=== PATIENT | male | born 1965 | race Caucasian/White ===

== ENCOUNTER 2017-05-05 16:52 | Inpatient (IN) | payer MEDICAID ==
[~2017-05-05] VITALS: Ht 190.5 cm; Wt 79.4 kg
[2017-05-05 17:11] VITALS: BP 147/82
[2017-05-05] MEDS ORDERED: Ampicillin/Sulbactam Sod 3 GM in NS 110 ML IVPB ONE (17:15)
[2017-05-05] MEDS ORDERED: Vancomycin 1.5gm/D5W 250ml 250 ML IVPB ONE (17:15)
[2017-05-05] MEDS ORDERED: TIVICAY50 MG ORAL (17:39)
[2017-05-05] MEDS ORDERED: DESCOVY 200-251 EACH PO (17:39)
[2017-05-05] MEDS ORDERED: Unasyn 3gm Inj ONE (17:41)
[2017-05-05 17:52] LABS: BASOPHILS % (AUTO) 0.4 % (0.0-2.0); EOSINOPHILS % (AUTO) 2.8 % (0.0-3.0); HEMATOCRIT 35.8 % (42.0-52.0); HEMOGLOBIN 12.1 G/DL (14.2-18.0); LYMPHOCYTES % (AUTO) 17.7 % (20.0-45.0); MEAN CORPUSCULAR VOLUME 89 FL (80-99); MONOCYTES % (AUTO) 7.6 % (1.0-10.0); NEUTROPHILS % (AUTO) 71.6 % (45.0-75.0); PLATELET COUNT 204 K/UL (150-450); RED BLOOD COUNT 4.03 M/UL (4.70-6.10); RED CELL DISTRIBUTION WIDTH 13.1 % (11.6-14.8); WHITE BLOOD COUNT 7.6 K/UL (4.8-10.8)
[2017-05-05 18:04] LABS: ANION GAP 4 mmol/L (5-15); BLOOD UREA NITROGEN 12 mg/dL (7-18); CALCIUM 8.6 MG/DL (8.5-10.1); CARBON DIOXIDE 29 MMOL/L (21-32); CHLORIDE 102 MMOL/L (98-107); CREATININE 0.9 MG/DL (0.55-1.30); POTASSIUM 4.1 MMOL/L (3.5-5.1); SODIUM 135 MMOL/L (136-145)
[2017-05-05 18:20] LABS: ALANINE AMINOTRANSFERASE 24 U/L (12-78); ALBUMIN 2.8 G/DL (3.4-5.0); ALBUMIN/GLOBULIN RATIO 0.7 (1.0-2.7); ALKALINE PHOSPHATASE 90 U/L (46-116); ASPARTATE AMINO TRANSFERASE 15 U/L (15-37); BILIRUBIN,TOTAL 0.5 MG/DL (0.2-1.0)
--- NOTE | 2017-05-05 19:09 | Emergency Room Report ---
History of Present Illness General Chief Complaint: Upper Extremity Injury Source: Patient Present Illness HPI 51-year-old male presents ED for evaluation. Patient notes pain and swelling to his right hand times one week. States he noticed 2 small bumps on his right hand did not seek medical attention. States it is progressively worse and more swollen. Pain is throbbing, 9/10, nonradiating. Denies fevers chills. Patient has history of HIV but states he is compliant with his medications. States his viral that is undetectable. No other aggravating relieving factors. Denies any other associated symptoms Allergies: Coded Allergies: ACETAMINOPHEN (Verified Allergy, Unknown, 05/05/17) Patient History Past Medical History: none Past Surgical History: none Pertinent Family History: none Social History: Denies: smoking, alcohol use, drug use Immunizations: UTD Reviewed Nursing Documentation: PMH: Agreed, PSxH: Agreed Review of Systems All Other Systems: negative except mentioned in HPI Physical Exam Vital Signs Date Time Temp Pulse Resp B/P (MAP) Pulse Ox O2 Delivery O2 Flow Rate FiO2 05/05/17 16:58 98.2 103 18 147/82 99 Room Air 98.2 Sp02 EP Interpretation: reviewed, normal General Appearance: no apparent distress, alert, GCS 15, non-toxic Head: normocephalic Eyes: bilateral eye normal inspection, bilateral eye PERRL ENT: normal ENT inspection Neck: normal inspection Respiratory: normal inspection Cardiovascular #1: normal inspection Gastrointestinal: normal inspection Rectal: deferred Genitourinary: no CVA tenderness Musculoskeletal: swelling - R hand Neurologic: alert, oriented x3, responsive, motor strength/tone normal, sensory intact, speech normal Psychiatric: judgement/insight normal, memory normal, mood/affect normal, no suicidal/homicidal ideation Skin: other - swelling/erythema to R hand Lymphatic: normal inspection Medical Decision Making Diagnostic Impression: Primary Impression: Cellulitis of right hand ER Course Hospital Course 51-year-old male presents to ED with redness, swelling R hand Differential diagnoses include: Cellulitis, abscess, rash. Clinical course Patient placed on stretcher. After initial history and physical I ordered labs , blood Cx, UA, IVFs There is no evidence of fluctuation. I do not believe incision and drainage is possible at this time labs reviewed - no leukocytosis, Hb/Hct stable, no electrolyte abnormalities. lactate ok broad spectrum antibiotics given. Case discussed with Dr Sesay and he agreed to accept the patient to his service for further care and support Diagnosis - cellulitis of R hand Patient admitted to floor in serious condition Labs Test 05/05/17 17:20 White Blood Count 7.6 K/UL (4.8-10.8) Red Blood Count 4.03 M/UL (4.70-6.10) Hemoglobin 12.1 G/DL (14.2-18.0) Hematocrit 35.8 % (42.0-52.0) Mean Corpuscular Volume 89 FL (80-99) Mean Corpuscular Hemoglobin 30.0 PG (27.0-31.0) Mean Corpuscular Hemoglobin Concent 33.8 G/DL (32.0-36.0) Red Cell Distribution Width 13.1 % (11.6-14.8) Platelet Count 204 K/UL (150-450) Mean Platelet Volume 6.0 FL (6.5-10.1) Neutrophils (%) (Auto) 71.6 % (45.0-75.0) Lymphocytes (%) (Auto) 17.7 % (20.0-45.0) Monocytes (%) (Auto) 7.6 % (1.0-10.0) Eosinophils (%) (Auto) 2.8 % (0.0-3.0) Basophils (%) (Auto) 0.4 % (0.0-2.0) Sodium Level 135 MMOL/L (136-145) Potassium Level 4.1 MMOL/L (3.5-5.1) Chloride Level 102 MMOL/L (98-107) Carbon Dioxide Level 29 MMOL/L (21-32) Anion Gap 4 mmol/L (5-15) Blood Urea Nitrogen 12 mg/dL (7-18) Creatinine 0.9 MG/DL (0.55-1.30) Estimat Glomerular Filtration Rate > 60 mL/min (>60) Glucose Level 95 MG/DL (74-106) Lactic Acid Level 0.70 mmol/L (0.66-2.22) Calcium Level 8.6 MG/DL (8.5-10.1) Total Bilirubin 0.5 MG/DL (0.2-1.0) Aspartate Amino Transf (AST/SGOT) 15 U/L (15-37) Alanine Aminotransferase (ALT/SGPT) 24 U/L (12-78) Alkaline Phosphatase 90 U/L (46-116) Creatine Kinase MB 2.0 NG/ML (0.0-3.6) Total Protein 6.6 G/DL (6.4-8.2) Albumin 2.8 G/DL (3.4-5.0) Globulin 3.8 g/dL Albumin/Globulin Ratio 0.7 (1.0-2.7) Last Vital Signs Date Time Temp Pulse Resp B/P (MAP) Pulse Ox O2 Delivery O2 Flow Rate FiO2 05/05/17 17:11 98.2 79 18 147/82 99 Room Air 98.2 Status: improved Disposition: ADMITTED INPATIENT Condition: Serious Referrals: [facility],REFERRING (PCP) VENTURA VILLA M.D. May 05, 2017 19:08
[2017-05-05 19:22] VITALS: BP 141/78
[2017-05-05] MEDS ORDERED: Albuterol/Ipratropium 3ml neb HHN PRN (19:45)
[2017-05-05] MEDS ORDERED: Morphine Sulfate 4mg/ml Inj IVP PRN (19:45)
[2017-05-05] MEDS ORDERED: Miralax 17gm pkt ORAL PRN (19:45)
[2017-05-05] MEDS ORDERED: Nitroglycerin Subl 0.4mg tab SL PRN (19:45)
[2017-05-05 21:22] VITALS: BP 128/74
[2017-05-05] MEDS: Cefepime HCl 2 GM in D5W 110 ML IV SCH (23:21)
[2017-05-05] MEDS: Heparin 5000 units/ml inj SUBQ SCH (23:25)
[2017-05-06] VITALS: BP 145/73
[2017-05-06] MEDS: Vancomycin 1 GM in D5W 275 ML IVPB SCH ×3 (02:01→17:43)
[2017-05-06 04:00] VITALS: BP 131/80
[2017-05-06 07:00] LABS: BASOPHILS % (AUTO) 0.8 % (0.0-2.0); EOSINOPHILS % (AUTO) 2.2 % (0.0-3.0); HEMATOCRIT 35.8 % (42.0-52.0); HEMOGLOBIN 12.4 G/DL (14.2-18.0); LYMPHOCYTES % (AUTO) 16.6 % (20.0-45.0); MEAN CORPUSCULAR VOLUME 89 FL (80-99); MONOCYTES % (AUTO) 7.3 % (1.0-10.0); NEUTROPHILS % (AUTO) 73.1 % (45.0-75.0); PLATELET COUNT 219 K/UL (150-450); RED BLOOD COUNT 4.02 M/UL (4.70-6.10); RED CELL DISTRIBUTION WIDTH 12.9 % (11.6-14.8); WHITE BLOOD COUNT 8.4 K/UL (4.8-10.8)
[2017-05-06 08:00] VITALS: BP 123/74
[2017-05-06 08:27] LABS: ALANINE AMINOTRANSFERASE 23 U/L (12-78); ANION GAP 9 mmol/L (5-15); ASPARTATE AMINO TRANSFERASE 17 U/L (15-37); BILIRUBIN,TOTAL 0.5 MG/DL (0.2-1.0); BLOOD UREA NITROGEN 7 mg/dL (7-18); CALCIUM 8.7 MG/DL (8.5-10.1); CARBON DIOXIDE 25 MMOL/L (21-32); CHLORIDE 102 MMOL/L (98-107); POTASSIUM 3.9 MMOL/L (3.5-5.1); SODIUM 136 MMOL/L (136-145)
[2017-05-06 08:28] LABS: ALBUMIN 2.9 G/DL (3.4-5.0); ALBUMIN/GLOBULIN RATIO 0.7 (1.0-2.7); ALKALINE PHOSPHATASE 92 U/L (46-116)
[2017-05-06] MEDS ORDERED: Dolutegravir Sodium 50mg tab ORAL SCH ×2 (09:00)
[2017-05-06] MEDS: Heparin 5000 units/ml inj SUBQ SCH ×2 (10:00→20:12)
[2017-05-06] MEDS: Cefepime HCl 2 GM in D5W 110 ML IV SCH (11:31)
[2017-05-06 12:00] VITALS: BP 135/87
--- NOTE | 2017-05-06 12:41 | Consultation ---
Consult Note Consult Note ID DIC # [id number] DEBBIE JOHNSTON M.D. May 06, 2017 12:41
--- NOTE | 2017-05-06 15:33 | History and Physical ---
History of Present Illness General Date patient seen: May 06, 2017 Reason for Hospitalization: Upper Extremity Injury Present Illness HPI 51-year-old male present to ED for evaluation of pain and swelling to his right hand times one week. States he noticed 2 small bumps on his right hand did not seek medical attention. States it is progressively worse and more swollen. Pain is throbbing, 9/10, nonradiating. Denies fevers chills. Patient has history of HIV but states he is compliant with his medications. States his viral that is undetectable. No other aggravating relieving factors. Denies any other associated symptoms Allergies: Coded Allergies: ACETAMINOPHEN (Verified Allergy, Unknown, 05/06/17) States nausea and other effects Medication History Scheduled Dolutegravir Sodium (Tivicay), 50 MG ORAL DAILY, (Reported) Miscellaneous Medications Emtricitabine/Tenofov Alafenam (Descovy 200-25 mg Tablet), 1 EACH PO, (Reported) Patient History Healthcare decision maker N Resuscitation status Full Code Advanced Directive on File Past Medical/Surgical History Past Medical/Surgical History: (1) HIV disease Review of Systems All Other Systems: negative except mentioned in HPI Physical Exam General Appearance: WD/WN Lines, tubes and drains: peripheral HEENT: normocephalic Neck: non-tender, normal inspection Respiratory/Chest: chest wall non-tender, lungs clear Breasts: no masses Cardiovascular/Chest: normal peripheral pulses, no JVD Abdomen: soft Genitourinary/Rectal: normal genital exam Extremities: normal range of motion Skin Exam: rash Last 24 Hour Vital Signs Date Time Temp Pulse Resp B/P (MAP) Pulse Ox O2 Delivery O2 Flow Rate FiO2 05/06/17 12:30 97.2 05/06/17 12:00 97.2 83 18 135/87 100 05/06/17 11:31 96.3 05/06/17 08:00 96.3 78 18 123/74 98 05/06/17 07:52 78 16 Room Air 05/06/17 04:00 Room Air 05/06/17 04:00 99.5 98 20 131/80 97 05/06/17 00:00 99.1 96 18 145/73 99 05/06/17 00:00 Room Air 05/05/17 22:00 Room Air 05/05/17 21:50 98.2 71 18 128/71 99 Room Air 98.2 05/05/17 21:22 98.2 71 15 128/74 99 Room Air 98.2 05/05/17 19:30 75 16 Room Air 05/05/17 19:22 98.2 75 16 141/78 99 Room Air 98.2 05/05/17 17:11 98.2 79 18 147/82 99 Room Air 98.2 05/05/17 16:58 98.2 103 18 147/82 99 Room Air 98.2 Intake and Output 05/05/17 05/06/17 19:00 07:00 Intake Total 1485.0 ml Balance 1485.0 ml Intake Oral 700 ml IV Total 385.0 ml Other 400 ml # Voids 1 Laboratory Tests Test 05/05/17 17:20 05/06/17 05:30 White Blood Count 7.6 K/UL (4.8-10.8) 8.4 K/UL (4.8-10.8) Red Blood Count 4.03 M/UL (4.70-6.10) L 4.02 M/UL (4.70-6.10) L Hemoglobin 12.1 G/DL (14.2-18.0) L 12.4 G/DL (14.2-18.0) L Hematocrit 35.8 % (42.0-52.0) L 35.8 % (42.0-52.0) L Mean Corpuscular Volume 89 FL (80-99) 89 FL (80-99) Mean Corpuscular Hemoglobin 30.0 PG (27.0-31.0) 30.8 PG (27.0-31.0) Mean Corpuscular Hemoglobin Concent 33.8 G/DL (32.0-36.0) 34.6 G/DL (32.0-36.0) Red Cell Distribution Width 13.1 % (11.6-14.8) 12.9 % (11.6-14.8) Platelet Count 204 K/UL (150-450) 219 K/UL (150-450) Mean Platelet Volume 6.0 FL (6.5-10.1) L 6.1 FL (6.5-10.1) L Neutrophils (%) (Auto) 71.6 % (45.0-75.0) 73.1 % (45.0-75.0) Lymphocytes (%) (Auto) 17.7 % (20.0-45.0) L 16.6 % (20.0-45.0) L Monocytes (%) (Auto) 7.6 % (1.0-10.0) 7.3 % (1.0-10.0) Eosinophils (%) (Auto) 2.8 % (0.0-3.0) 2.2 % (0.0-3.0) Basophils (%) (Auto) 0.4 % (0.0-2.0) 0.8 % (0.0-2.0) Sodium Level 135 MMOL/L (136-145) L 136 MMOL/L (136-145) Potassium Level 4.1 MMOL/L (3.5-5.1) 3.9 MMOL/L (3.5-5.1) Chloride Level 102 MMOL/L (98-107) 102 MMOL/L (98-107) Carbon Dioxide Level 29 MMOL/L (21-32) 25 MMOL/L (21-32) Anion Gap 4 mmol/L (5-15) L 9 mmol/L (5-15) Blood Urea Nitrogen 12 mg/dL (7-18) 7 mg/dL (7-18) Creatinine 0.9 MG/DL (0.55-1.30) 1.0 MG/DL (0.55-1.30) Estimat Glomerular Filtration Rate > 60 mL/min (>60) > 60 mL/min (>60) Glucose Level 95 MG/DL (74-106) 105 MG/DL (74-106) Lactic Acid Level 0.70 mmol/L (0.66-2.22) Calcium Level 8.6 MG/DL (8.5-10.1) 8.7 MG/DL (8.5-10.1) Total Bilirubin 0.5 MG/DL (0.2-1.0) 0.5 MG/DL (0.2-1.0) Aspartate Amino Transf (AST/SGOT) 15 U/L (15-37) 17 U/L (15-37) Alanine Aminotransferase (ALT/SGPT) 24 U/L (12-78) 23 U/L (12-78) Alkaline Phosphatase 90 U/L (46-116) 92 U/L (46-116) Creatine Kinase MB 2.0 NG/ML (0.0-3.6) Total Protein 6.6 G/DL (6.4-8.2) 7.1 G/DL (6.4-8.2) Albumin 2.8 G/DL (3.4-5.0) L 2.9 G/DL (3.4-5.0) L Globulin 3.8 g/dL 4.2 g/dL Albumin/Globulin Ratio 0.7 (1.0-2.7) L 0.7 (1.0-2.7) L Microbiology Date/Time Source Procedure Growth Status 05/05/17 18:00 Hand Right Gram Stain - Final Resulted 05/05/17 18:00 Wound Culture - Preliminary Staphylococcus Aureus Resulted Height (Feet): 6 Height (Inches): 3.00 Weight (Pounds): 175 Medications Current Medications Medications (Trade) Dose Ordered Sig/Deisi Route PRN Reason Start Time Stop Time Status Last Admin Dose Admin Albuterol/ Ipratropium (Albuterol/ Ipratropium) 3 ml Q4H PRN HHN Shortness of Breath 05/05/17 19:45 05/10/17 19:44 Dextrose (Dextrose 50%) STAT PRN IV Hypoglycemia 05/05/17 19:45 06/04/17 19:44 Heparin Sodium (Porcine) (Heparin 5000 units/ml) 5,000 units EVERY 12 HOURS SUBQ 05/05/17 22:00 06/04/17 21:59 05/06/17 10:00 Ibuprofen (Motrin) 600 mg Q6H PRN ORAL For Pain 05/06/17 01:15 06/05/17 01:14 05/06/17 11:31 Morphine Sulfate (Morphine Sulfate) 2 mg Q4H PRN IVP Moderate Pain (Pain Scale 4-6) 05/05/17 19:45 05/12/17 19:44 Nitroglycerin (Ntg) 0.4 mg Every 5 Minutes PRN SL Prn Chest Pain 05/05/17 19:45 06/04/17 19:44 Ondansetron HCl (Zofran) 4 mg Q6H PRN IVP Nausea & Vomiting 05/05/17 19:45 06/04/17 19:44 Patient Own Medication (Patient's Own Med) 1 ea QHS ORAL 05/06/17 21:00 06/05/17 20:59 Patient Own Medication (Patient's Own Med) 1 ea QHS ORAL 05/06/17 21:00 06/05/17 20:59 Polyethylene Glycol (Miralax) 17 gm DAILYPRN PRN ORAL Constipation 05/05/17 19:45 06/04/17 19:44 Temazepam (Restoril) 15 mg HSPRN PRN ORAL Insomnia 05/05/17 19:45 05/12/17 19:44 Vancomycin HCl (Vanco rx to dose) 1 ea DAILYPRN PRN MISC RX TO DOSE PROTOCOL 05/05/17 21:30 06/04/17 21:29 Vancomycin HCl 1 gm/Dextrose 275 ml @ 183.3 mls/ hr Q8HR@0200,1000,1800 IVPB 05/06/17 02:00 05/11/17 01:59 05/06/17 10:00 Assessment/Plan Problem List: (1) Cellulitis of right hand ICD Codes: L03.113 - Cellulitis of right upper limb SNOMED: 76772992 (2) HIV disease ICD Codes: B20 - Human immunodeficiency virus [HIV] disease SNOMED: 26626807 Assessment/Plan iv abx ID to f/u check cbc/ bmp JUAN ABARCA May 06, 2017 15:32
[2017-05-06 16:00] VITALS: BP 119/56
--- NOTE | 2017-05-06 16:47 | Consultation ---
History of Present Illness General Date patient seen: May 06, 2017 Chief Complaint: Upper Extremity Injury Reason for Consultation: right hand cellulitis Present Illness HPI 51 year old male presented to ED for evaluation of right hand pain and swelling with wound for one week. Patient noticed 2 small bumps on his right hand a week ago and did not seek medical attention. States it is progressively worseed with worsening swelling, ulceration, and edema. Pain is throbbing, 9/10 , nonradiating. Denies fevers or chills. Patient has history of HIV but states he is compliant with his medications. States his viral that is undetectable. No other aggravating relieving factors. Denies any other associated symptoms. does not recall trauma but states he was gardening a few days ago and may have had scratches from thorns. large dorsal aspect hypothenar area ulceration with drainage. surgery called to evaluate. Allergies: Coded Allergies: ACETAMINOPHEN (Verified Allergy, Unknown, 05/06/17) States nausea and other effects Medication History Scheduled Dolutegravir Sodium (Tivicay), 50 MG ORAL DAILY, (Reported) Miscellaneous Medications Emtricitabine/Tenofov Alafenam (Descovy 200-25 mg Tablet), 1 EACH PO, (Reported) Patient History History Provided By: Patient, Medical Record, PMD Healthcare decision maker N Resuscitation status Full Code Advanced Directive on File Past Medical/Surgical History Past Medical/Surgical History: (1) HIV disease (2) Cellulitis of right hand Review of Systems Constitutional: Denies: no symptoms, see HPI, chills, sweats, fever, malaise, weakness, other Eye: Denies: no symptoms, see HPI, eye pain, blurred vision, tearing, double vision, nose pain, nose congestion, acuity changes, discharge, other ENT: Denies: no symptoms, see HPI, ear pain, ear discharge, nose pain, nose congestion, throat pain, throat swelling, mouth pain, hearing loss, nasal discharge, other Respiratory: Denies: no symptoms, see HPI, cough, orthopnea, shortness of breath, stridor, wheezing, [place], sputum, other Cardiovascular: Denies: no symptoms, see HPI, chest pain, edema, palpitations, syncope, PND, other Gastrointestinal: Denies: no symptoms, see HPI, abdominal pain, constipation, diarrhea, nausea, vomiting, melena, hematemesis, other Genitourinary: Denies: no symptoms, see HPI, discharge, dysuria, frequency, hematuria, pain, retention, incontinence, urgency, vag bleed/dc, other Musculoskeletal: Denies: no symptoms, see HPI, back pain, gout, joint pain, joint swelling, muscle pain, muscle stiffness, other Skin: Reports: lesions Psychiatric: Denies: no symptoms, see HPI, prior hx, anxiety, depressed feelings, emotional problems, SI, HI, hallucinations, other Neurological: Denies: no symptoms, see HPI, headache, numbness, paresthesia, seizure, tingling, tremors, focal weakness, syncope, dizziness, other Endocrine: Denies: no symptoms, see HPI, excessive sweating, flushing, intolerance to temperature, increased thirst, increased urine, unexplained weight loss, other Hematologic/Lymphatic: Denies: no symptoms, see HPI, anemia, blood clots, easy bleeding, easy bruising, swollen glands, diathesis, other All Other Systems: negative except mentioned in HPI Physical Exam General Appearance: no apparent distress, alert Lines, tubes and drains: peripheral HEENT: normocephalic, mucous membranes moist, PERRL Neck: normal alignment, supple, normal inspection Respiratory/Chest: lungs clear, normal breath sounds, no respiratory distress, no accessory muscle use Cardiovascular/Chest: normal peripheral pulses, normal rate, regular rhythm Abdomen: normal bowel sounds, non tender, soft, no organomegaly, no mass Extremities: other - right hand dorsal aspect hypothenar area with 4cm x 5cm raised ulcerative lesion. serous drainage. minimal pus. unsure if underlying edema or abscess? tender, skin blistering Skin Exam: normal pigmentation Neurologic: alert, oriented x 3, responsive Last 24 Hour Vital Signs Date Time Temp Pulse Resp B/P (MAP) Pulse Ox O2 Delivery O2 Flow Rate FiO2 05/06/17 16:00 97.9 84 18 119/56 98 05/06/17 12:30 97.2 05/06/17 12:00 97.2 83 18 135/87 100 05/06/17 11:31 96.3 05/06/17 08:00 96.3 78 18 123/74 98 05/06/17 07:52 78 16 Room Air 05/06/17 04:00 Room Air 05/06/17 04:00 99.5 98 20 131/80 97 05/06/17 00:00 99.1 96 18 145/73 99 05/06/17 00:00 Room Air 05/05/17 22:00 Room Air 05/05/17 21:50 98.2 71 18 128/71 99 Room Air 98.2 05/05/17 21:22 98.2 71 15 128/74 99 Room Air 98.2 05/05/17 19:30 75 16 Room Air 05/05/17 19:22 98.2 75 16 141/78 99 Room Air 98.2 05/05/17 17:11 98.2 79 18 147/82 99 Room Air 98.2 05/05/17 16:58 98.2 103 18 147/82 99 Room Air 98.2 Intake and Output 05/05/17 05/06/17 19:00 07:00 Intake Total 1485.0 ml Balance 1485.0 ml Intake Oral 700 ml IV Total 385.0 ml Other 400 ml # Voids 1 Laboratory Tests Test 05/05/17 17:20 05/06/17 05:30 White Blood Count 7.6 K/UL (4.8-10.8) 8.4 K/UL (4.8-10.8) Red Blood Count 4.03 M/UL (4.70-6.10) L 4.02 M/UL (4.70-6.10) L Hemoglobin 12.1 G/DL (14.2-18.0) L 12.4 G/DL (14.2-18.0) L Hematocrit 35.8 % (42.0-52.0) L 35.8 % (42.0-52.0) L Mean Corpuscular Volume 89 FL (80-99) 89 FL (80-99) Mean Corpuscular Hemoglobin 30.0 PG (27.0-31.0) 30.8 PG (27.0-31.0) Mean Corpuscular Hemoglobin Concent 33.8 G/DL (32.0-36.0) 34.6 G/DL (32.0-36.0) Red Cell Distribution Width 13.1 % (11.6-14.8) 12.9 % (11.6-14.8) Platelet Count 204 K/UL (150-450) 219 K/UL (150-450) Mean Platelet Volume 6.0 FL (6.5-10.1) L 6.1 FL (6.5-10.1) L Neutrophils (%) (Auto) 71.6 % (45.0-75.0) 73.1 % (45.0-75.0) Lymphocytes (%) (Auto) 17.7 % (20.0-45.0) L 16.6 % (20.0-45.0) L Monocytes (%) (Auto) 7.6 % (1.0-10.0) 7.3 % (1.0-10.0) Eosinophils (%) (Auto) 2.8 % (0.0-3.0) 2.2 % (0.0-3.0) Basophils (%) (Auto) 0.4 % (0.0-2.0) 0.8 % (0.0-2.0) Sodium Level 135 MMOL/L (136-145) L 136 MMOL/L (136-145) Potassium Level 4.1 MMOL/L (3.5-5.1) 3.9 MMOL/L (3.5-5.1) Chloride Level 102 MMOL/L (98-107) 102 MMOL/L (98-107) Carbon Dioxide Level 29 MMOL/L (21-32) 25 MMOL/L (21-32) Anion Gap 4 mmol/L (5-15) L 9 mmol/L (5-15) Blood Urea Nitrogen 12 mg/dL (7-18) 7 mg/dL (7-18) Creatinine 0.9 MG/DL (0.55-1.30) 1.0 MG/DL (0.55-1.30) Estimat Glomerular Filtration Rate > 60 mL/min (>60) > 60 mL/min (>60) Glucose Level 95 MG/DL (74-106) 105 MG/DL (74-106) Lactic Acid Level 0.70 mmol/L (0.66-2.22) Calcium Level 8.6 MG/DL (8.5-10.1) 8.7 MG/DL (8.5-10.1) Total Bilirubin 0.5 MG/DL (0.2-1.0) 0.5 MG/DL (0.2-1.0) Aspartate Amino Transf (AST/SGOT) 15 U/L (15-37) 17 U/L (15-37) Alanine Aminotransferase (ALT/SGPT) 24 U/L (12-78) 23 U/L (12-78) Alkaline Phosphatase 90 U/L (46-116) 92 U/L (46-116) Creatine Kinase MB 2.0 NG/ML (0.0-3.6) Total Protein 6.6 G/DL (6.4-8.2) 7.1 G/DL (6.4-8.2) Albumin 2.8 G/DL (3.4-5.0) L 2.9 G/DL (3.4-5.0) L Globulin 3.8 g/dL 4.2 g/dL Albumin/Globulin Ratio 0.7 (1.0-2.7) L 0.7 (1.0-2.7) L Microbiology Date/Time Source Procedure Growth Status 05/05/17 18:00 Hand Right Gram Stain - Final Resulted 05/05/17 18:00 Wound Culture - Preliminary Staphylococcus Aureus Resulted Height (Feet): 6 Height (Inches): 3.00 Weight (Pounds): 175 Medications Current Medications Medications (Trade) Dose Ordered Sig/Deisi Route PRN Reason Start Time Stop Time Status Last Admin Dose Admin Albuterol/ Ipratropium (Albuterol/ Ipratropium) 3 ml Q4H PRN HHN Shortness of Breath 05/05/17 19:45 05/10/17 19:44 Dextrose (Dextrose 50%) STAT PRN IV Hypoglycemia 05/05/17 19:45 06/04/17 19:44 Heparin Sodium (Porcine) (Heparin 5000 units/ml) 5,000 units EVERY 12 HOURS SUBQ 05/05/17 22:00 06/04/17 21:59 05/06/17 10:00 Ibuprofen (Motrin) 600 mg Q6H PRN ORAL For Pain 05/06/17 01:15 06/05/17 01:14 05/06/17 11:31 Morphine Sulfate (Morphine Sulfate) 2 mg Q4H PRN IVP Moderate Pain (Pain Scale 4-6) 05/05/17 19:45 05/12/17 19:44 Nitroglycerin (Ntg) 0.4 mg Every 5 Minutes PRN SL Prn Chest Pain 05/05/17 19:45 06/04/17 19:44 Ondansetron HCl (Zofran) 4 mg Q6H PRN IVP Nausea & Vomiting 05/05/17 19:45 06/04/17 19:44 Patient Own Medication (Patient's Own Med) 1 ea QHS ORAL 05/06/17 21:00 06/05/17 20:59 Patient Own Medication (Patient's Own Med) 1 ea QHS ORAL 05/06/17 21:00 06/05/17 20:59 Polyethylene Glycol (Miralax) 17 gm DAILYPRN PRN ORAL Constipation 05/05/17 19:45 06/04/17 19:44 Temazepam (Restoril) 15 mg HSPRN PRN ORAL Insomnia 05/05/17 19:45 05/12/17 19:44 Vancomycin HCl (Vanco rx to dose) 1 ea DAILYPRN PRN MISC RX TO DOSE PROTOCOL 05/05/17 21:30 06/04/17 21:29 Vancomycin HCl 1 gm/Dextrose 275 ml @ 183.3 mls/ hr Q8HR@0200,1000,1800 IVPB 05/06/17 02:00 05/11/17 01:59 05/06/17 10:00 Assessment/Plan Problem List: (1) Cellulitis of right hand Assessment & Plan: interesting ulcerated lesion. unsure if possible that it has only been present for a few days given looks of wound. lots of debris and slothing overlying epidermis and some dermis noted. serous oozing but no active pus noted. hand cellulitis. good inflow. bedside debridement of tissue loss performed to viable tissue. wound cleaned and dressings applied. if not improved by tomorrow may need surgical debridement or even biopsy of wound. thank you for this consult will follow with recs NPO p MN in case of surgical procedure tomorrow IV Abx keep arm elevated. ICD Codes: L03.113 - Cellulitis of right upper limb SNOMED: [id number] Status: stable Howard Faith May 06, 2017 16:47
--- NOTE | 2017-05-06 16:58 | Diagnostic Imaging Report ---
Indication: Swelling of the right hand. Cellulitis. Concern for osteomyelitis Technique: MRI examination of the right hand was performed in a 1.5 Lia magnet. Sequences obtained include multiplanar T1 and T2 fast spin echo, and STIR. Comparison: none Findings: Bone marrow signal is normal. The marker is noted. There is diffuse fairly extensive subcutaneous edema and thickening of the skin involving the hand especially in the dorsum of the hand. The area of clinical concern is on the ulnar side of the and closer to the fourth and fifth metacarpals. There is no obvious abscess although the study was not obtained with intravenous contrast material. The extensor tendons deep to the area of cellulitis appear unremarkable. There is no joint effusion. Mild periarticular cyst noted in the head of the second metacarpal probably degenerative in nature. IMPRESSION: No evidence of acute osteomyelitis. Extensive subcutaneous edema consistent with given history of cellulitis. No obvious abscess.
[2017-05-06 20:00] VITALS: BP 137/72
[2017-05-06] MEDS: DOLUTEGRAVIR 50 MG ORAL SCH (20:11)
[2017-05-06] MEDS: DESCOVY ORAL SCH (20:11)
--- NOTE | 2017-05-06 20:30 | Consultation ---
DATE OF CONSULTATION: 05/06/2017 INFECTIOUS DISEASE CONSULTATION CONSULTING PHYSICIAN: Arjun Quiroz M.D. REQUESTING PHYSICIAN: Cony Sesay M.D. REASON FOR CONSULTATION: Evaluation of the patient for right hand cellulitis and abscess. HISTORY OF PRESENT ILLNESS: The patient is a 51-year-old male with past medical history significant for HIV, diagnosed 30 years ago, on his HIV regimen, well-controlled who came to the hospital with swelling and tenderness of right hand. The patient was found to have right abscess. The patient's cultures were sent and the patient has been started on IV antibiotics. Infectious Disease consultation has been requested for further evaluation of the patient's antibiotic management. The patient does not know what precipitated the event. He denies any IV drug abuse currently or any trauma to the area. PAST MEDICAL HISTORY: Significant for HIV, CD4 count has been in the range of 700, viral load undetectable (as per the patient). MEDICATIONS: Medication at home, the patient is getting Tivicay and Descovy and taking his home medications here. The patient has been started on IV vancomycin and cefepime also. ALLERGIES: Acetaminophen. SOCIAL HISTORY: Significant for IV drug abuse in the past. FAMILY HISTORY: Not contributing. REVIEW OF SYSTEMS: HEENT: No recent change in vision or hearing. PULMONARY: No cough. No shortness of breath. CARDIOVASCULAR: No chest pain. No palpitations. GASTROINTESTINAL/ABDOMEN: No nausea or vomiting. GENITOURINARY: No dysuria. MUSCULOSKELETAL: As mentioned above, the patient has right hand abscess that started above 10 days ago and after the patient's manipulation, this has started to get worse. NEUROLOGIC: No seizure. PHYSICAL EXAMINATION: VITAL SIGNS: Temperature 96 degrees, blood pressure 133/74, pulse 78, and respiratory rate 18. HEENT: No pale conjunctivae. No icterus. NECK: No lymphadenopathy. CHEST: Clear. HEART: S1 and S2. ABDOMEN: Soft. Nontender. EXTREMITIES: The patient has a right hand abscess with purulent discharge. NEUROLOGIC: Awake and alert. LABORATORY AND DIAGNOSTIC DATA: WBC 8, hemoglobin 12, and platelets 220. BUN 7 and creatinine 1. ALT, AST, and alkaline phosphatase unremarkable. Wound culture is growing Staphylococcus aureus, susceptibility pending. ASSESSMENT: The patient is a 51-year-old male with, 1. Human immunodeficiency virus, controlled on his human immunodeficiency virus treatment. 2. Right hand abscess (rule out osteo, however, this has low probability). 3. Rule out bacteremia. PLAN: 1. We will continue the patient on vancomycin and discontinue cefepime. 2. Monitor CBC. 3. Monitor BMP. 4. Monitor cultures (blood, wound). 5. Continue the patient on his HIV medication (Tivicay and Descovy). 6. Recommend Surgical consult for incision and drainage of the abscess. 7. MRI of the hand to rule out osteomyelitis. Thank you, Dr. Sesay, for allowing me to participate in the care of this patient. I will follow the patient with you during this hospitalization. Arjun Quiroz M.D. DR: RAFFAELE JOB#: [id number] CC:
[2017-05-07] VITALS: BP 125/74
[2017-05-07] MEDS: Vancomycin 1250mg/D5W 250ml IVPB SCH ×3 (02:12→17:12)
[2017-05-07 03:59] VITALS: BP 130/76
[2017-05-07 08:18] VITALS: BP 133/79
--- NOTE | 2017-05-07 08:18 | Pulmonology Progress Note ---
Assessment/Plan Assessment/Plan ASSESSMENT R hand cellulitis with MRSA HIV status s/p bedside debridement PLAN OF CARE MS floor IV abx ID follows wound cx + MRSA Resume ART therapy surgery follows s/p debridement MRI R hand - no evidence of acute OM wound care elevate R hand if no improvement in 1 day, will need surg debridement and biopsy of the wound - per surgeon Venous Duplex BLE negative case discussed and evaluated by supervising physician Subjective Allergies: Coded Allergies: ACETAMINOPHEN (Verified Allergy, Unknown, 05/06/17) States nausea and other effects Subjective afebrile, awaiting for possible surgery made NPO by surgeon + pain 10/30 R hand Objective Last 24 Hour Vital Signs Date Time Temp Pulse Resp B/P (MAP) Pulse Ox O2 Delivery O2 Flow Rate FiO2 05/07/17 03:59 98.1 82 18 130/76 99 05/07/17 00:00 98.1 83 18 125/74 99 05/06/17 20:00 98.4 85 18 137/72 99 05/06/17 18:44 82 18 Room Air 05/06/17 16:00 97.9 84 18 119/56 98 05/06/17 12:30 97.2 05/06/17 12:00 97.2 83 18 135/87 100 05/06/17 11:31 96.3 Intake and Output 05/06/17 05/07/17 19:00 07:00 Intake Total 956.6 ml 360 ml Balance 956.6 ml 360 ml Intake Oral 480 ml 360 ml IV Total 476.6 ml # Voids 3 General Appearance: no acute distress HEENT: normocephalic, atraumatic, anicteric Respiratory/Chest: lungs clear, no respiratory distress Cardiovascular: normal rate, no JVD Abdomen: normal bowel sounds, soft, non tender, non distended Extremities: pedal pulses normal, other - R hand with dressing C/D/I, + edema, tenderness on palpation , able to perform all ROM Neurologic/Psychiatric: alert, oriented x 3, responsive Musculoskeletal: normal muscle bulk Microbiology Date/Time Source Procedure Growth Status 05/05/17 17:30 Blood Blood Culture - Preliminary NO GROWTH AFTER 24 HOURS Resulted 05/05/17 17:20 Blood Blood Culture - Preliminary NO GROWTH AFTER 24 HOURS Resulted 05/05/17 18:00 Hand Right Gram Stain - Final Resulted 05/05/17 18:00 Wound Culture - Preliminary Staphylococcus Aureus Resulted Laboratory Tests 05/06/17 17:00: Vancomycin Level Trough 10.2 Current Medications Medications (Trade) Dose Ordered Sig/Deisi Route PRN Reason Start Time Stop Time Status Last Admin Dose Admin Albuterol/ Ipratropium (Albuterol/ Ipratropium) 3 ml Q4H PRN HHN Shortness of Breath 05/05/17 19:45 05/10/17 19:44 Dextrose (Dextrose 50%) STAT PRN IV Hypoglycemia 05/05/17 19:45 06/04/17 19:44 Heparin Sodium (Porcine) (Heparin 5000 units/ml) 5,000 units EVERY 12 HOURS SUBQ 05/05/17 22:00 06/04/17 21:59 05/06/17 20:12 Ibuprofen (Motrin) 600 mg Q6H PRN ORAL For Pain 05/06/17 01:15 06/05/17 01:14 05/06/17 20:11 Morphine Sulfate (Morphine Sulfate) 2 mg Q4H PRN IVP Moderate Pain (Pain Scale 4-6) 05/05/17 19:45 05/12/17 19:44 Nitroglycerin (Ntg) 0.4 mg Every 5 Minutes PRN SL Prn Chest Pain 05/05/17 19:45 06/04/17 19:44 Ondansetron HCl (Zofran) 4 mg Q6H PRN IVP Nausea & Vomiting 05/05/17 19:45 06/04/17 19:44 Patient Own Medication (Patient's Own Med) 1 ea QHS ORAL 05/06/17 21:00 06/05/17 20:59 05/06/17 20:11 Patient Own Medication (Patient's Own Med) 1 ea QHS ORAL 05/06/17 21:00 06/05/17 20:59 05/06/17 20:11 Polyethylene Glycol (Miralax) 17 gm DAILYPRN PRN ORAL Constipation 05/05/17 19:45 06/04/17 19:44 Temazepam (Restoril) 15 mg HSPRN PRN ORAL Insomnia 05/05/17 19:45 05/12/17 19:44 Vancomycin HCl (Vanco rx to dose) 1 ea DAILYPRN PRN MISC RX TO DOSE PROTOCOL 05/05/17 21:30 06/04/17 21:29 Vancomycin HCl/ Dextrose 250 ml @ 166.667 mls/hr Q8H IVPB 05/07/17 02:00 05/12/17 23:59 05/07/17 02:12 Guzman ArthurElsy chris NP May 07, 2017 08:18
[2017-05-07] MEDS: Heparin 5000 units/ml inj SUBQ SCH ×2 (09:06→21:00)
--- NOTE | 2017-05-07 14:13 | Operative Note - PDOC ---
Operative Note Operative Note Date of Operation/Procedure: May 07, 2017 Pre-op Diagnosis: right hand dorsal aspect abscess Procedure: incision and drainage of right hand abscess Post-op Diagnosis: same as pre-op Surgeon: linda Anesthesia: local Specimen: yes Complications: none Condition: stable Estimated Blood Loss: minimal Drains: none Implant(s) used?: No Indications for Procedure 51M presented with right hand swelling and ulceration for the past few days. does not recall when or how it began but remembers first noticing needing to seek medical attention 3-4 days ago. was gardening a week ago and may have injured it but does not recall. right hand dorsal aspect with area of erythema , edema, skin blistering and ulceration. IV Abx improving but formed abscess cavity underlying tissues noted on exam today. I&D recommended and indicated. risks, benefits, and alternatives discussed with patient. consent obtained. Description of Procedure patient made comfortable at bedside. right hand cleaned. 1%lido with epi infiltrated in right hand overlying abscess cavity in proposed skin incision site. incision made over area of fluctuance. 2-3cm incision made and formed cruciate incision for drainage. 5+cc pus and necrotic fibrinous tissue evacuated. wound cavity deep and tracking. wound irrigated with sterile saline until clean. packing and dressings applied. patient tolerated well. packing and dressings BID. will follow wound until healed. cont abx. keep elevated. Howard Faith May 07, 2017 14:13
--- NOTE | 2017-05-07 17:00 | Infectious Diseases Prog Note ---
Assessment/Plan Assessment/Plan ASSESSMENT: The patient is a 51-year-old male with, #. Right hand abscess 2ry to MRSA infection (?injury while gardening) -MRI Hand: No evidence of acute osteomyelitis. Extensive subcutaneous edema consistent with given history of cellulitis. No obvious abscess. -Bcx NTD -s/p I+D R hand abscess 05/07- 5cc pus and necrotic fibrinous tissue evacuated; wound cx p -wound cx 05/05 MRSA ( S vanco MICHAEL 1, bactrim, linezolid, tetracycline) #. Human immunodeficiency virus, controlled on his human immunodeficiency virus treatment. -CD4 count has been in the range of 700, viral load undetectable (as per the patient). PLAN: 1. We will continue the patient on vancomycin #05/30-. upon discharge will transition to PO Bactrim or Doxycycline -05/06 SP Cefepime #2 -05/05 SP Unasyn x1 2. Monitor CBC. 3. Monitor BMP. 4. Monitor cultures (blood, wound). 5. Continue the patient on his HIV medication (Tivicay and Descovy). 6. Gen Sx f/u Thank you, Dr. Sesay, for allowing me to participate in the care of this patient. I will follow the patient with you during this hospitalization. Subjective Allergies: Coded Allergies: ACETAMINOPHEN (Verified Allergy, Unknown, 05/06/17) States nausea and other effects Objective Vital Signs Last 24 Hour Vital Signs Date Time Temp Pulse Resp B/P (MAP) Pulse Ox O2 Delivery O2 Flow Rate FiO2 05/07/17 15:46 97.7 05/07/17 14:47 97.7 05/07/17 11:49 97.7 05/07/17 11:37 78 18 Room Air 05/07/17 10:50 97.7 05/07/17 08:18 97.7 73 20 133/79 98 05/07/17 03:59 98.1 82 18 130/76 99 05/07/17 00:00 98.1 83 18 125/74 99 05/06/17 20:00 98.4 85 18 137/72 99 2/14/18 18:44 82 18 Room Air Height (Feet): 6 Height (Inches): 3.00 Weight (Pounds): 175 Objective HEENT: No pale conjunctivae. No icterus. NECK: No lymphadenopathy. CHEST: Clear. HEART: S1 and S2. ABDOMEN: Soft. Nontender. EXTREMITIES: The patient has a right hand abscess with purulent discharge. NEUROLOGIC: Awake and alert. Microbiology Date/Time Source Procedure Growth Status 05/05/17 17:30 Blood Blood Culture - Preliminary NO GROWTH AFTER 24 HOURS Resulted 05/05/17 17:20 Blood Blood Culture - Preliminary NO GROWTH AFTER 24 HOURS Resulted 05/06/17 06:00 Nasal Nares Left MRSA Culture - Preliminary Resulted 05/05/17 18:00 Hand Right Gram Stain - Final Resulted 05/05/17 18:00 Wound Culture - Preliminary Staphylococcus Aureus - Mrsa Resulted Laboratory Tests Test 05/06/17 17:00 Vancomycin Level Trough 10.2 ug/mL (5.0-12.0) Current Medications Medications (Trade) Dose Ordered Sig/Deisi Route PRN Reason Start Time Stop Time Status Last Admin Dose Admin Albuterol/ Ipratropium (Albuterol/ Ipratropium) 3 ml Q4H PRN HHN Shortness of Breath 05/05/17 19:45 05/10/17 19:44 Dextrose (Dextrose 50%) STAT PRN IV Hypoglycemia 05/05/17 19:45 06/04/17 19:44 Heparin Sodium (Porcine) (Heparin 5000 units/ml) 5,000 units EVERY 12 HOURS SUBQ 05/05/17 22:00 06/04/17 21:59 05/07/17 09:06 Ibuprofen (Motrin) 600 mg Q6H PRN ORAL For Pain 05/06/17 01:15 06/05/17 01:14 05/07/17 10:50 Morphine Sulfate (Morphine Sulfate) 2 mg Q4H PRN IVP Moderate Pain (Pain Scale 4-6) 05/05/17 19:45 05/12/17 19:44 Nitroglycerin (Ntg) 0.4 mg Every 5 Minutes PRN SL Prn Chest Pain 05/05/17 19:45 06/04/17 19:44 Ondansetron HCl (Zofran) 4 mg Q6H PRN IVP Nausea & Vomiting 05/05/17 19:45 06/04/17 19:44 Patient Own Medication (Patient's Own Med) 1 ea QHS ORAL 05/06/17 21:00 06/05/17 20:59 05/06/17 20:11 Patient Own Medication (Patient's Own Med) 1 ea QHS ORAL 05/06/17 21:00 06/05/17 20:59 05/06/17 20:11 Polyethylene Glycol (Miralax) 17 gm DAILYPRN PRN ORAL Constipation 05/05/17 19:45 06/04/17 19:44 Temazepam (Restoril) 15 mg HSPRN PRN ORAL Insomnia 05/05/17 19:45 05/12/17 19:44 Vancomycin HCl (Vanco rx to dose) 1 ea DAILYPRN PRN MISC RX TO DOSE PROTOCOL 05/05/17 21:30 06/04/17 21:29 Vancomycin HCl/ Dextrose 250 ml @ 166.667 mls/hr Q8H IVPB 05/07/17 02:00 05/12/17 23:59 05/07/17 09:07 Arabella Preston M.D. May 07, 2017 17:00
[2017-05-07] MEDS ORDERED: NS 500ML ONE (17:47)
[2017-05-07] MEDS ORDERED: Tubing IV Secondary IV ONE (17:47)
[2017-05-07] MEDS: DESCOVY ORAL SCH (20:54)
[2017-05-07] MEDS: DOLUTEGRAVIR 50 MG ORAL SCH (20:54)
[2017-05-08] MEDS: Vancomycin 1250mg/D5W 250ml IVPB SCH ×3 (02:22→19:17)
[2017-05-08 03:56] VITALS: BP 127/80
--- NOTE | 2017-05-08 07:58 | Pulmonology Progress Note ---
Assessment/Plan Assessment/Plan ASSESSMENT R hand cellulitis with MRSA HIV status s/p bedside debridement s/p surgical I &D R hand abscess 05/07 PLAN OF CARE MS floor IV abx ID follows wound cx + MRSA, bloodc x -prel negative Resume ART therapy surgery follows s/p debridement MRI R hand - no evidence of acute OM wound care elevate R hand if no improvement in 1 day, will need surg debridement and biopsy of the wound - per surgeon Venous Duplex BLE negative case discussed and evaluated by supervising physician Subjective Allergies: Coded Allergies: ACETAMINOPHEN (Verified Allergy, Unknown, 05/06/17) States nausea and other effects Subjective afebrile, s/p surgery 05/07 I&D R hand abscess Objective Last 24 Hour Vital Signs Date Time Temp Pulse Resp B/P (MAP) Pulse Ox O2 Delivery O2 Flow Rate FiO2 05/08/17 05:04 97.0 05/08/17 04:05 97.0 05/08/17 03:56 97.0 99 18 127/80 96 05/07/17 20:54 97.7 05/07/17 19:30 80 18 Room Air 21 05/07/17 15:46 97.7 05/07/17 14:47 97.7 05/07/17 11:37 78 18 Room Air 05/07/17 10:50 97.7 05/07/17 08:18 97.7 73 20 133/79 98 Intake and Output 05/07/17 05/08/17 19:00 07:00 Intake Total 610 ml 250.000 ml Balance 610 ml 250.000 ml Intake Oral 360 ml IV Total 250 ml 250.000 ml # Voids 2 Objective General Appearance: no acute distress HEENT: normocephalic, atraumatic, anicteric Respiratory/Chest: lungs clear, no respiratory distress Cardiovascular: normal rate, no JVD Abdomen: normal bowel sounds, soft, non tender, non distended Extremities: pedal pulses normal, other - R hand with dressing C/D/I, + edema, tenderness on palpation , able to perform all ROM Neurologic/Psychiatric: alert, oriented x 3, responsive Musculoskeletal: normal muscle bulk Microbiology Date/Time Source Procedure Growth Status 05/05/17 17:30 Blood Blood Culture - Preliminary NO GROWTH AFTER 48 HOURS Resulted 05/05/17 17:20 Blood Blood Culture - Preliminary NO GROWTH AFTER 48 HOURS Resulted 05/06/17 06:00 Nasal Nares Left MRSA Culture - Preliminary Resulted 05/05/17 18:00 Hand Right Gram Stain - Final Resulted 05/05/17 18:00 Wound Culture - Preliminary Staphylococcus Aureus - Mrsa Resulted Current Medications Medications (Trade) Dose Ordered Sig/Deisi Route PRN Reason Start Time Stop Time Status Last Admin Dose Admin Albuterol/ Ipratropium (Albuterol/ Ipratropium) 3 ml Q4H PRN HHN Shortness of Breath 05/05/17 19:45 05/10/17 19:44 Dextrose (Dextrose 50%) STAT PRN IV Hypoglycemia 05/05/17 19:45 06/04/17 19:44 Heparin Sodium (Porcine) (Heparin 5000 units/ml) 5,000 units EVERY 12 HOURS SUBQ 05/05/17 22:00 06/04/17 21:59 05/07/17 21:00 Ibuprofen (Motrin) 600 mg Q6H PRN ORAL For Pain 05/06/17 01:15 06/05/17 01:14 05/08/17 04:05 Morphine Sulfate (Morphine Sulfate) 2 mg Q4H PRN IVP Moderate Pain (Pain Scale 4-6) 05/05/17 19:45 05/12/17 19:44 Nitroglycerin (Ntg) 0.4 mg Every 5 Minutes PRN SL Prn Chest Pain 05/05/17 19:45 06/04/17 19:44 Ondansetron HCl (Zofran) 4 mg Q6H PRN IVP Nausea & Vomiting 05/05/17 19:45 06/04/17 19:44 Patient Own Medication (Patient's Own Med) 1 ea QHS ORAL 05/06/17 21:00 06/05/17 20:59 05/07/17 20:54 Patient Own Medication (Patient's Own Med) 1 ea QHS ORAL 05/06/17 21:00 06/05/17 20:59 05/07/17 20:54 Polyethylene Glycol (Miralax) 17 gm DAILYPRN PRN ORAL Constipation 05/05/17 19:45 06/04/17 19:44 Temazepam (Restoril) 15 mg HSPRN PRN ORAL Insomnia 05/05/17 19:45 05/12/17 19:44 Vancomycin HCl (Vanco rx to dose) 1 ea DAILYPRN PRN MISC RX TO DOSE PROTOCOL 05/05/17 21:30 06/04/17 21:29 Vancomycin HCl/ Dextrose 250 ml @ 166.667 mls/hr Q8H IVPB 05/07/17 02:00 05/12/17 23:59 05/08/17 02:22 Guzman (Genia)Elsy NP May 08, 2017 07:58
[2017-05-08 08:00] VITALS: BP 108/62
[2017-05-08] MEDS: Heparin 5000 units/ml inj SUBQ SCH ×2 (09:01→21:00)
[2017-05-08 10:28] LABS: HEMATOCRIT 37.1 % (42.0-52.0); HEMOGLOBIN 12.6 G/DL (14.2-18.0); MEAN CORPUSCULAR VOLUME 89 FL (80-99); PLATELET COUNT 251 K/UL (150-450); RED BLOOD COUNT 4.16 M/UL (4.70-6.10); RED CELL DISTRIBUTION WIDTH 12.6 % (11.6-14.8); WHITE BLOOD COUNT 3.3 K/UL (4.8-10.8)
[2017-05-08 10:43] LABS: ANION GAP 7 mmol/L (5-15); BLOOD UREA NITROGEN 10 mg/dL (7-18); CALCIUM 8.6 MG/DL (8.5-10.1); CARBON DIOXIDE 27 MMOL/L (21-32); CHLORIDE 106 MMOL/L (98-107); POTASSIUM 4.3 MMOL/L (3.5-5.1); SODIUM 140 MMOL/L (136-145)
--- NOTE | 2017-05-08 11:21 | Infectious Diseases Prog Note ---
Assessment/Plan Assessment/Plan ASSESSMENT: The patient is a 51-year-old male with, #. Right hand abscess 2ry to MRSA infection (?injury while gardening) -MRI Hand: No evidence of acute osteomyelitis. Extensive subcutaneous edema consistent with given history of cellulitis. No obvious abscess. -Bcx NTD -s/p I+D R hand abscess 05/07- 5cc pus and necrotic fibrinous tissue evacuated; wound cx p -wound cx 05/05 MRSA ( S vanco MICHAEL 1, bactrim, linezolid, tetracycline) #. Human immunodeficiency virus, controlled on his human immunodeficiency virus treatment. -CD4 count has been in the range of 700, viral load undetectable (as per the patient). PLAN: 1. We will continue the patient on vancomycin #06/30-. upon discharge will transition to PO Bactrim DS 2 tabs bid -05/06 SP Cefepime #2 -05/05 SP Unasyn x1 2. Monitor CBC. 3. Monitor BMP. 4. Monitor cultures (blood, wound). 5. Continue the patient on his HIV medication (Tivicay and Descovy). 6. Gen Sx f/u Thank you, Dr. Sesay, for allowing me to participate in the care of this patient. I will follow the patient with you during this hospitalization. Subjective Allergies: Coded Allergies: ACETAMINOPHEN (Verified Allergy, Unknown, 05/06/17) States nausea and other effects Subjective afebrile no leukocytosis Bcx N TD I+D cx pending Objective Vital Signs Last 24 Hour Vital Signs Date Time Temp Pulse Resp B/P (MAP) Pulse Ox O2 Delivery O2 Flow Rate FiO2 05/08/17 08:00 96.8 66 19 108/62 99 05/08/17 08:00 Room Air 05/08/17 07:53 67 18 Room Air 21 05/08/17 05:04 97.0 05/08/17 04:05 97.0 05/08/17 03:56 97.0 99 18 127/80 96 05/07/17 20:54 97.7 05/07/17 19:30 80 18 Room Air 21 2/15/18 15:46 97.7 05/07/17 14:47 97.7 05/07/17 11:37 78 18 Room Air Height (Feet): 6 Height (Inches): 3.00 Weight (Pounds): 175 Objective HEENT: No pale conjunctivae. No icterus. NECK: No lymphadenopathy. CHEST: Clear. HEART: S1 and S2. ABDOMEN: Soft. Nontender. EXTREMITIES: R hand with surgical dressing NEUROLOGIC: Awake and alert. Microbiology Date/Time Source Procedure Growth Status 05/05/17 17:30 Blood Blood Culture - Preliminary NO GROWTH AFTER 48 HOURS Resulted 05/05/17 17:20 Blood Blood Culture - Preliminary NO GROWTH AFTER 48 HOURS Resulted 05/06/17 06:00 Nasal Nares Left MRSA Culture - Final Staphylococcus Aureus - Mrsa Complete 05/05/17 18:00 Hand Right Gram Stain - Final Complete 05/05/17 18:00 Wound Culture - Final Staphylococcus Aureus - Mrsa Complete Laboratory Tests Test 05/08/17 09:30 White Blood Count 3.3 K/UL (4.8-10.8) L Red Blood Count 4.16 M/UL (4.70-6.10) L Hemoglobin 12.6 G/DL (14.2-18.0) L Hematocrit 37.1 % (42.0-52.0) L Mean Corpuscular Volume 89 FL (80-99) Mean Corpuscular Hemoglobin 30.2 PG (27.0-31.0) Mean Corpuscular Hemoglobin Concent 33.9 G/DL (32.0-36.0) Red Cell Distribution Width 12.6 % (11.6-14.8) Platelet Count 251 K/UL (150-450) Mean Platelet Volume 6.1 FL (6.5-10.1) L Neutrophils (%) (Auto) % (45.0-75.0) Lymphocytes (%) (Auto) % (20.0-45.0) Monocytes (%) (Auto) % (1.0-10.0) Eosinophils (%) (Auto) % (0.0-3.0) Basophils (%) (Auto) % (0.0-2.0) Differential Total Cells Counted 100 Neutrophils % (Manual) 56 % (45-75) Lymphocytes % (Manual) 29 % (20-45) Monocytes % (Manual) 11 % (1-10) H Eosinophils % (Manual) 4 % (0-3) H Basophils % (Manual) 0 % (0-2) Band Neutrophils 0 % (0-8) Platelet Estimate Adequate Platelet Morphology Normal Red Blood Cell Morphology Normal Sodium Level 140 MMOL/L (136-145) Potassium Level 4.3 MMOL/L (3.5-5.1) Chloride Level 106 MMOL/L (98-107) Carbon Dioxide Level 27 MMOL/L (21-32) Anion Gap 7 mmol/L (5-15) Blood Urea Nitrogen 10 mg/dL (7-18) Creatinine 1.0 MG/DL (0.55-1.30) Estimat Glomerular Filtration Rate > 60 mL/min (>60) Glucose Level 103 MG/DL (74-106) Calcium Level 8.6 MG/DL (8.5-10.1) Vancomycin Level Trough 15.0 ug/mL (5.0-12.0) H Current Medications Medications (Trade) Dose Ordered Sig/Deisi Route PRN Reason Start Time Stop Time Status Last Admin Dose Admin Albuterol/ Ipratropium (Albuterol/ Ipratropium) 3 ml Q4H PRN HHN Shortness of Breath 05/05/17 19:45 05/10/17 19:44 Dextrose (Dextrose 50%) STAT PRN IV Hypoglycemia 05/05/17 19:45 06/04/17 19:44 Heparin Sodium (Porcine) (Heparin 5000 units/ml) 5,000 units EVERY 12 HOURS SUBQ 05/05/17 22:00 06/04/17 21:59 05/08/17 09:01 Ibuprofen (Motrin) 600 mg Q6H PRN ORAL For Pain 05/06/17 01:15 06/05/17 01:14 05/08/17 04:05 Morphine Sulfate (Morphine Sulfate) 2 mg Q4H PRN IVP Moderate Pain (Pain Scale 4-6) 05/05/17 19:45 05/12/17 19:44 Nitroglycerin (Ntg) 0.4 mg Every 5 Minutes PRN SL Prn Chest Pain 05/05/17 19:45 06/04/17 19:44 Ondansetron HCl (Zofran) 4 mg Q6H PRN IVP Nausea & Vomiting 05/05/17 19:45 06/04/17 19:44 Patient Own Medication (Patient's Own Med) 1 ea QHS ORAL 05/06/17 21:00 06/05/17 20:59 05/07/17 20:54 Patient Own Medication (Patient's Own Med) 1 ea QHS ORAL 05/06/17 21:00 06/05/17 20:59 05/07/17 20:54 Polyethylene Glycol (Miralax) 17 gm DAILYPRN PRN ORAL Constipation 05/05/17 19:45 06/04/17 19:44 Temazepam (Restoril) 15 mg HSPRN PRN ORAL Insomnia 05/05/17 19:45 05/12/17 19:44 Vancomycin HCl (Vanco rx to dose) 1 ea DAILYPRN PRN MISC RX TO DOSE PROTOCOL 05/05/17 21:30 06/04/17 21:29 Vancomycin HCl/ Dextrose 250 ml @ 166.667 mls/hr Q8H IVPB 05/07/17 02:00 05/12/17 23:59 05/08/17 02:22 Arabella Preston M.D. May 08, 2017 11:21
[2017-05-08] MEDS ORDERED: Albuterol/Ipratropium 3ml neb HHN PRN (15:45)
[2017-05-08 15:50] VITALS: BP 134/77
--- NOTE | 2017-05-08 19:22 | General Surgery Progress Note ---
General Surgery-Progress Note Subjective Procedure Performed incision and drainage of right hand abscess Symptoms: improved Additional Comments doing okay. states hand feels better with less pressure. no n/v/f/c. noted a small lump on right groin as well. Objective Last 24 Hour Vital Signs Date Time Temp Pulse Resp B/P (MAP) Pulse Ox O2 Delivery O2 Flow Rate FiO2 05/08/17 15:50 97.0 63 19 134/77 97 05/08/17 15:50 Room Air 05/08/17 08:00 96.8 66 19 108/62 99 05/08/17 08:00 Room Air 05/08/17 07:53 67 18 Room Air 21 05/08/17 05:04 97.0 05/08/17 04:05 97.0 05/08/17 03:56 97.0 99 18 127/80 96 05/07/17 20:54 97.7 05/07/17 19:30 80 18 Room Air 21 I&O Intake and Output 05/07/17 05/08/17 19:00 07:00 Intake Total 610 ml 250.000 ml Balance 610 ml 250.000 ml Intake Oral 360 ml IV Total 250 ml 250.000 ml # Voids 2 Dressing: saturated Wound: clean Cardiovascular: RSR Respiratory: clear Abdomen: soft, flat, non-tender, present bowel sounds Extremities: other - 1cm possible folliculitus in pubic / scrotal hair region. will monitor. Laboratory Tests Test 05/08/17 09:30 White Blood Count 3.3 K/UL (4.8-10.8) L Red Blood Count 4.16 M/UL (4.70-6.10) L Hemoglobin 12.6 G/DL (14.2-18.0) L Hematocrit 37.1 % (42.0-52.0) L Mean Corpuscular Volume 89 FL (80-99) Mean Corpuscular Hemoglobin 30.2 PG (27.0-31.0) Mean Corpuscular Hemoglobin Concent 33.9 G/DL (32.0-36.0) Red Cell Distribution Width 12.6 % (11.6-14.8) Platelet Count 251 K/UL (150-450) Mean Platelet Volume 6.1 FL (6.5-10.1) L Neutrophils (%) (Auto) % (45.0-75.0) Lymphocytes (%) (Auto) % (20.0-45.0) Monocytes (%) (Auto) % (1.0-10.0) Eosinophils (%) (Auto) % (0.0-3.0) Basophils (%) (Auto) % (0.0-2.0) Differential Total Cells Counted 100 Neutrophils % (Manual) 56 % (45-75) Lymphocytes % (Manual) 29 % (20-45) Monocytes % (Manual) 11 % (1-10) H Eosinophils % (Manual) 4 % (0-3) H Basophils % (Manual) 0 % (0-2) Band Neutrophils 0 % (0-8) Platelet Estimate Adequate Platelet Morphology Normal Red Blood Cell Morphology Normal Sodium Level 140 MMOL/L (136-145) Potassium Level 4.3 MMOL/L (3.5-5.1) Chloride Level 106 MMOL/L (98-107) Carbon Dioxide Level 27 MMOL/L (21-32) Anion Gap 7 mmol/L (5-15) Blood Urea Nitrogen 10 mg/dL (7-18) Creatinine 1.0 MG/DL (0.55-1.30) Estimat Glomerular Filtration Rate > 60 mL/min (>60) Glucose Level 103 MG/DL (74-106) Calcium Level 8.6 MG/DL (8.5-10.1) Vancomycin Level Trough 15.0 ug/mL (5.0-12.0) H Plan Problems: (1) Cellulitis of right hand Assessment & Plan: interesting ulcerated lesion. unsure if possible that it has only been present for a few days given looks of wound. lots of debris and slothing overlying epidermis and some dermis noted. s/p I&D at bedside with evacuation of pus. packing and dressings removed and looks better today. no more active drainage. large wound that should heal in time. right pubic region lesion with cellulitis. if develops fluctuance will need I& D as well. -cont packing and dressings to hand wound -will monitor right groin wound -cont abx. Howard Faith May 08, 2017 19:22
[2017-05-08 20:00] VITALS: BP 143/86
[2017-05-08] MEDS: DESCOVY ORAL SCH (20:55)
[2017-05-08] MEDS: DOLUTEGRAVIR 50 MG ORAL SCH (20:56)
[2017-05-09] MEDS: Vancomycin 1250mg/D5W 250ml IVPB SCH ×2 (03:31→09:19)
[2017-05-09 08:00] VITALS: BP 134/75
[2017-05-09] MEDS: Heparin 5000 units/ml inj SUBQ SCH (09:19)
[2017-05-09] MEDS ORDERED: Lidocaine 1% 10mg/ml/Epi 0.005mg/ml 30ml vial INJ ONE (10:30)
--- NOTE | 2017-05-09 10:39 | Infectious Diseases Prog Note ---
Assessment/Plan Assessment/Plan ASSESSMENT: The patient is a 51-year-old male with, #. Right hand abscess 2ry to MRSA infection (?injury while gardening) -MRI Hand: No evidence of acute osteomyelitis. Extensive subcutaneous edema consistent with given history of cellulitis. No obvious abscess. -Bcx NTD -s/p I+D R hand abscess 05/07- 5cc pus and necrotic fibrinous tissue evacuated; wound cx p -wound cx 05/05 MRSA ( S vanco MICHAEL 1, bactrim, linezolid, tetracycline) # groin abscess #. Human immunodeficiency virus, controlled on his human immunodeficiency virus treatment. -CD4 count has been in the range of 700, viral load undetectable (as per the patient). PLAN: 1. We will continue the patient on vancomycin # -. upon discharge will transition to PO Bactrim DS 2 tabs bid -05/06 SP Cefepime #2 -05/05 SP Unasyn x1 2. Monitor CBC. 3. Monitor BMP. 4. Monitor cultures (blood, wound). 5. Continue the patient on his HIV medication (Tivicay and Descovy) 6. Gen Sx f/u , I/D of abscess Subjective Constitutional: Denies: no symptoms, fever, chills, fatigue, anorexia, drenching sweats, other Allergies: Coded Allergies: ACETAMINOPHEN (Verified Allergy, Unknown, 05/06/17) States nausea and other effects Objective Vital Signs Last 24 Hour Vital Signs Date Time Temp Pulse Resp B/P (MAP) Pulse Ox O2 Delivery O2 Flow Rate FiO2 05/09/17 08:00 97.2 69 20 134/75 99 Room Air 05/08/17 20:24 98.1 05/08/17 20:00 98.1 75 21 143/86 100 05/08/17 19:34 62 19 Room Air 21 05/08/17 15:50 97.0 63 19 134/77 97 05/08/17 15:50 Room Air Height (Feet): 6 Height (Inches): 3.00 Weight (Pounds): 175 HEENT: anicteric Respiratory/Chest: normal breath sounds Cardiovascular: regular rhythm Current Medications Medications (Trade) Dose Ordered Sig/Deisi Route PRN Reason Start Time Stop Time Status Last Admin Dose Admin Albuterol/ Ipratropium (Albuterol/ Ipratropium) 3 ml Q4H PRN HHN Shortness of Breath 05/08/17 15:45 05/13/17 15:44 Dextrose (Dextrose 50%) STAT PRN IV Hypoglycemia 05/05/17 19:45 06/04/17 19:44 Heparin Sodium (Porcine) (Heparin 5000 units/ml) 5,000 units EVERY 12 HOURS SUBQ 05/05/17 22:00 06/04/17 21:59 05/09/17 09:19 Ibuprofen (Motrin) 600 mg Q6H PRN ORAL For Pain 05/06/17 01:15 06/05/17 01:14 05/08/17 19:25 Morphine Sulfate (Morphine Sulfate) 2 mg Q4H PRN IVP Moderate Pain (Pain Scale 4-6) 05/05/17 19:45 05/12/17 19:44 Nitroglycerin (Ntg) 0.4 mg Every 5 Minutes PRN SL Prn Chest Pain 05/05/17 19:45 06/04/17 19:44 Ondansetron HCl (Zofran) 4 mg Q6H PRN IVP Nausea & Vomiting 05/05/17 19:45 06/04/17 19:44 Patient Own Medication (Patient's Own Med) 1 ea QHS ORAL 05/06/17 21:00 06/05/17 20:59 05/08/17 20:55 Patient Own Medication (Patient's Own Med) 1 ea QHS ORAL 05/06/17 21:00 06/05/17 20:59 05/08/17 20:56 Polyethylene Glycol (Miralax) 17 gm DAILYPRN PRN ORAL Constipation 05/05/17 19:45 06/04/17 19:44 Temazepam (Restoril) 15 mg HSPRN PRN ORAL Insomnia 05/05/17 19:45 05/12/17 19:44 Vancomycin HCl (Vanco rx to dose) 1 ea DAILYPRN PRN MISC RX TO DOSE PROTOCOL 05/05/17 21:30 06/04/17 21:29 Vancomycin HCl/ Dextrose 250 ml @ 166.667 mls/hr Q8H IVPB 05/07/17 02:00 05/12/17 23:59 05/09/17 09:19 DEBBIE JOHNSTON M.D. May 09, 2017 10:39
--- NOTE | 2017-05-09 10:53 | General Surgery Progress Note ---
General Surgery-Progress Note Subjective Procedure Performed incision and drainage of right hand abscess Symptoms: improved Additional Comments right hand wound much improved. swelling improved. good range of motion. no erythema and cellulitis improved. right pubic/groin wound with spontaneous drainage yesterday evening and today improved with minimal cellulitis as compared to before. Objective Last 24 Hour Vital Signs Date Time Temp Pulse Resp B/P (MAP) Pulse Ox O2 Delivery O2 Flow Rate FiO2 05/09/17 08:00 97.2 69 20 134/75 99 Room Air 05/08/17 20:24 98.1 05/08/17 20:00 98.1 75 21 143/86 100 05/08/17 19:34 62 19 Room Air 21 05/08/17 15:50 97.0 63 19 134/77 97 05/08/17 15:50 Room Air I&O Intake and Output 05/08/17 05/09/17 19:00 07:00 Intake Total 600 ml 1250.000 ml Balance 600 ml 1250.000 ml Intake Oral 600 ml 1000 ml IV Total 250.000 ml # Voids 3 2 Plan Problems: (1) Cellulitis of right hand Assessment & Plan: interesting ulcerated lesion. unsure if possible that it has only been present for a few days given looks of wound. lots of debris and slothing overlying epidermis and some dermis noted. s/p I&D at bedside with evacuation of pus. no more active drainage. large wound that should heal in time. much improved right pubic region lesion with cellulitis resolving. spontaneous drainage last night and much improved today. no more drainage. -cont packing and dressings to hand wound. patient states that he can do wound care himself and wants to go home. will teach him wound care okay to d/c from surgical standpoint with wound care. recommended SNF or care facility given wounds but patient adamantly denied and states he wants to go home (friends house) -cont abx; transition to oral Howard Faith May 09, 2017 10:53
--- NOTE | 2017-05-09 11:40 | Pulmonology Progress Note ---
Assessment/Plan Assessment/Plan ASSESSMENT R hand cellulitis with MRSA HIV status s/p bedside debridement s/p surgical I &D R hand abscess 05/07 PLAN OF CARE [facility] floor IV abx ID follows wound cx + MRSA, bloodc x -prel negative Resume ART therapy surgery follows s/p debridement MRI R hand - no evidence of acute OM wound care elevate R hand if no improvement in 1 day, will need surg debridement and biopsy of the wound - per surgeon Venous Duplex BLE negative surgeon cleared fro dc ID ok for dc on oral abx, script provided dc today case discussed and evaluated by supervising physician Subjective Allergies: Coded Allergies: ACETAMINOPHEN (Verified Allergy, Unknown, 05/06/17) States nausea and other effects Subjective afebrile, s/p surgery 05/07 I&D R hand abscess Objective Last 24 Hour Vital Signs Date Time Temp Pulse Resp B/P (MAP) Pulse Ox O2 Delivery O2 Flow Rate FiO2 05/09/17 08:00 97.2 69 20 134/75 99 Room Air 05/08/17 20:24 98.1 05/08/17 20:00 98.1 75 21 143/86 100 05/08/17 19:34 62 19 Room Air 21 05/08/17 15:50 97.0 63 19 134/77 97 05/08/17 15:50 Room Air Intake and Output 05/08/17 05/09/17 19:00 07:00 Intake Total 600 ml 1250.000 ml Balance 600 ml 1250.000 ml Intake Oral 600 ml 1000 ml IV Total 250.000 ml # Voids 3 2 Objective General Appearance: no acute distress HEENT: normocephalic, atraumatic, anicteric Respiratory/Chest: lungs clear, no respiratory distress Cardiovascular: normal rate, no JVD Abdomen: normal bowel sounds, soft, non tender, non distended Extremities: pedal pulses normal, other - R hand with dressing C/D/I, + edema, tenderness on palpation , able to perform all ROM Neurologic/Psychiatric: alert, oriented x 3, responsive Musculoskeletal: normal muscle bulk Current Medications Medications (Trade) Dose Ordered Sig/Deisi Route PRN Reason Start Time Stop Time Status Last Admin Dose Admin Albuterol/ Ipratropium (Albuterol/ Ipratropium) 3 ml Q4H PRN HHN Shortness of Breath 05/08/17 15:45 05/13/17 15:44 Dextrose (Dextrose 50%) STAT PRN IV Hypoglycemia 05/05/17 19:45 06/04/17 19:44 Heparin Sodium (Porcine) (Heparin 5000 units/ml) 5,000 units EVERY 12 HOURS SUBQ 05/05/17 22:00 06/04/17 21:59 05/09/17 09:19 Ibuprofen (Motrin) 600 mg Q6H PRN ORAL For Pain 05/06/17 01:15 06/05/17 01:14 05/08/17 19:25 Morphine Sulfate (Morphine Sulfate) 2 mg Q4H PRN IVP Moderate Pain (Pain Scale 4-6) 05/05/17 19:45 05/12/17 19:44 Nitroglycerin (Ntg) 0.4 mg Every 5 Minutes PRN SL Prn Chest Pain 05/05/17 19:45 06/04/17 19:44 Ondansetron HCl (Zofran) 4 mg Q6H PRN IVP Nausea & Vomiting 05/05/17 19:45 06/04/17 19:44 Patient Own Medication (Patient's Own Med) 1 ea QHS ORAL 05/06/17 21:00 06/05/17 20:59 05/08/17 20:55 Patient Own Medication (Patient's Own Med) 1 ea QHS ORAL 05/06/17 21:00 06/05/17 20:59 05/08/17 20:56 Polyethylene Glycol (Miralax) 17 gm DAILYPRN PRN ORAL Constipation 05/05/17 19:45 06/04/17 19:44 Temazepam (Restoril) 15 mg HSPRN PRN ORAL Insomnia 05/05/17 19:45 05/12/17 19:44 Vancomycin HCl (Vanco rx to dose) 1 ea DAILYPRN PRN MISC RX TO DOSE PROTOCOL 05/05/17 21:30 06/04/17 21:29 Vancomycin HCl/ Dextrose 250 ml @ 166.667 mls/hr Q8H IVPB 05/07/17 02:00 05/12/17 23:59 05/09/17 09:19 Elsy Hinds NP (Vanchtein) May 09, 2017 11:40
[2017-05-09] MEDS ORDERED: BACTRIM DS TAB1 EAC1 ORAL (12:37)
[2017-05-09] MEDS ORDERED: Tubing IV Secondary IV ONE (14:20)
--- NOTE | 2017-05-13 09:44 | Discharge Summary ---
Discharge Summary Hospital Course Date of Admission May 05, 2017 at 18:26 Date of Discharge May 09, 2017 at 14:21 Admitting Diagnosis R hand cellulitis YANET Orlando is a 51 year old male who was admitted on May 05, 2017 at 18:26 for R Hand Celulitis Hospital Course dc summary #[id number] Discharge Medications Continued Medications: Dolutegravir Sodium (Tivicay) 50 Mg Tablet 50 MG ORAL DAILY, TAB Emtricitabine/Tenofov Alafenam (Descovy 200-25 mg Tablet) 1 Each Tablet 1 EACH PO, TAB Trimethoprim/Sulfamethoxazole 160/800* (Bactrim Ds Tablet*) 1 Each Tablet 1 TAB ORAL TWICE A DAY for 10 Days, #20 TAB Discharge Discharge Disposition Patient was discharged to Home (01) Discharge Diagnoses: Guzman (Tishevangelist)Elsy NP May 13, 2017 09:44
--- NOTE | 2017-05-13 17:15 | Discharge Summary 2 SIG ---
DATE OF ADMISSION: 05/05/2017 DATE OF DISCHARGE: 05/09/2017 REASON FOR ADMISSION: 51-year-old male with a history of HIV, well controlled with antiretroviral therapy, presented to emergency department with the pain and swelling in the right hand for one week. No fever. No leukocytosis. Stable electrolytes. Lactate within normal limits. The patient was started on broad-spectrum antibiotics and admitted with diagnosis of cellulitis right hand. HOSPITAL COURSE: The patient was admitted to Med/Surg floor. The patient was started on IV antibiotics. ID and Surgery consults were requested. Wound culture grew MRSA. Blood cultures were negative. HAART therapy was resumed. Surgeon followed. According to surgeon, wound looked like an ulcerated lesion, unlikely to be present only for few days given the look of the wound: lots of debris and sloughing overlying epidermis and dermis. Noted serous oozing, but no active pus. Hand cellulitis with good inflow noted. The patient undergone bedside debridement on 05/06/2017 and was kept NPO for surgical procedure in the morning. Right arm was elevated at all times. The patient subsequently undergone on 05/07/2017 right hand dorsal aspect abscess incision and drainage with evacuation of 5 mL of pus. MRI of the right hand revealed no evidence of acute osteomyelitis. Extensive subcutaneous edema was noted. ID closely followed. The patient also had present on admission right pubic groin abscess, which was self draining and improved with minimal cellulitis appearance. Per ID recommendation, the patient was on the vancomycin and upon discharge antibiotics regimen was changed to oral Bactrim two pills twice a day. The patient was stable for discharge. HAART therapy was continued. Per patient, CD4 count had been in the range of 700 and viral load was undetectable. FINAL DIAGNOSES: 1. Right hand cellulitis with right hand abscess secondary to methicillin-resistant Staphylococcus aureus infection. 2. Status post incision and drainage of right hand abscess. 3. Groin abscess. 4. Human immunodeficiency virus status. DISCHARGE MEDICATIONS: See medication reconciliation list. DISCHARGE INSTRUCTIONS: The patient was discharged home. Follow up with the primary care provider and HIV provider. Call surgeon for fever, purulent drainage from the wound, increased edema, erythema, and pain. Cony Sesay M.D. Elsy ArthurReba chris DR: MANSI JOB#: [id number] CC: HOWARD
--- NOTE | 2017-05-13 22:03 | Diagnostic Imaging Report ---
APPROVED REPORT CPT Code: 36827 Present Symptoms Comments: R/O DVT BILATERAL: Imaging reveals a patent deep venous system bilaterally. There is no evidence of thrombus within the femoral, popliteal or tibial segments. The greater saphenous veins are also within normal limits. Doppler indicates normal spontaneous flow within these segments. Incidental finding: Cystic, structure noted at the left popliteal vein level. Possible Bakers cyst
== END 2017-05-09 14:21 | disposition home or self-care (01) | DRG 894 ==
LOC: EMR 17:10 → 4W 18:26 → EDBEDREQ 20:49
PROC: 0H9FXZZ Drainage of Right Hand Skin, External Approach (ICD-10-PCS; principal; 2017-05-07)
DX: L02.511 Cutaneous abscess of right hand (principal); B20 Human immunodeficiency virus [HIV] disease; L02.214 Cutaneous abscess of groin; L03.113 Cellulitis of right upper limb; B95.62 Methicillin resistant Staphylococcus aureus infection as the cause of diseases classified elsewhere; Z88.6 Allergy status to analgesic agent
CPT/HCPCS: 36415; 80048; 80053; 80202; 82553; 83605; 85007; 85025; 87040; 87070; 87081; 87181; 87205; 93970; 94664; 99285